=== PATIENT | female | born 1960 | race Caucasian/White ===

== ENCOUNTER 2020-11-23 15:13 | Emergency (ER) | payer OTHER ==
[~2020-11-23] VITALS: Ht 157.5 cm; Wt 81.6 kg
--- NOTE | 2020-11-23 15:14 | NUR ---
pt ADAIR to bed 03 via henry.
[2020-11-23 15:18] VITALS: BP 133/86
[2020-11-23] MEDS ORDERED: NACL 0.9% 1,000 ML IV ONE (15:30)
--- NOTE | 2020-11-23 15:32 | NUR ---
CHEST XRAY PERFORMED AT 1532
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
[2020-11-23 15:56] LABS: BASOPHILS % (AUTO) 0.2 % (0.0-2.0); HEMATOCRIT 41.7 % (36-48); HEMOGLOBIN 13.9 g/dL (12.0-16.0); LYMPHOCYTES # (AUTO) 0.7 K/uL (2.5-16.5); LYMPHOCYTES % (AUTO) 4.7 % (20.5-51.1); MEAN CORPUSCULAR HEMOGLOBIN 32 pg (27-31); MEAN CORPUSCULAR HGB CONC 33 g/dL (33-37); MEAN CORPUSCULAR VOLUME 95.6 fL (80-94); MONOCYTES # (AUTO) 1.1 K/uL (0.8-1.0); MONOCYTES % (AUTO) 7.3 % (1.7-9.3); NEUTROPHILS # (AUTO) 13.7 K/uL (1.8-7.7); NEUTROPHILS % (AUTO) 87.8 % (42.2-75.2); PLATELET COUNT (AUTO) 275 K/uL (140-450); RED BLOOD CELL COUNT(AUTO) 4.36 MIL/uL (4.20-5.40); RED CELL DISTRIBUTION WIDTH 13.8 % (11.6-13.7); WHITE BLOOD COUNT (AUTO) 15.7 K/uL (4.8-10.8)
[2020-11-23 16:10] LABS: ALBUMIN 3.9 g/dL (3.4-5.0); ANION GAP 27.8 (8-16); CARBON DIOXIDE 13.1 mmol/L (21-32); CREATININE 1.7 mg/dL (0.6-1.3); POTASSIUM 3.9 mmol/L (3.5-5.1); TOTAL BILIRUBIN 0.6 mg/dL (0.0-1.0)
--- NOTE | 2020-11-23 16:18 | NUR ---
Pt ambulated to restroom, unable to provide UA at this time.
--- NOTE | 2020-11-23 16:22 | NUR ---
Pt pulled out IV, gauze applied with pressure for 2minutes. Per MD no IV access at this time, PO water at this time.
--- NOTE | 2020-11-23 17:01 | NUR ---
Pt resting visible equal rise and fall of chest, VSS, will continue to monitor.
--- NOTE | 2020-11-23 18:38 | NUR ---
Provided patient with jm stanley and cup of water
[2020-11-23 19:44] LABS: ANION GAP 27.5 (8-16); CREATININE 1.3 mg/dL (0.6-1.3); POTASSIUM 4.5 mmol/L (3.5-5.1)
--- NOTE | 2020-11-23 20:00 | NUR ---
Report taken from LENO Anthony for continuation of care.
--- NOTE | 2020-11-23 20:04 | NUR ---
Gave report to LENO Kahn. Transfer of care at this time.
[2020-11-23] MEDS ORDERED: ONDANSETRON 4 MG ODT PO ONE (20:15)
[2020-11-23] MEDS ORDERED: ALUMINUM HYD/MAG/SIMETHICONE 30 ML UDC PO ONE (20:15)
[2020-11-23] MEDS ORDERED: methocarbamoL 500 MG TAB PO ONE (20:15)
--- NOTE | 2020-11-23 20:15 | NUR ---
Patient sitting in bed locked in lowest position, x1 side rail up. Patient [id number]. Breathing even and unlabored. Patient reports she feel ok, has back pain 6/10. Provided Patient with water. NAD noted will continue to monitor.
--- NOTE | 2020-11-23 20:20 | NUR ---
Patient ambulated to bathroom with steady gait, unable to provide urine at this time.
--- NOTE | 2020-11-23 20:55 | NUR ---
Patient present tachycardic at 110. ERMD made aware, ok for discharge.
[2020-11-23 20:57] VITALS: BP 133/94
--- NOTE | 2020-11-23 20:57 | NUR ---
Patient discharged with v/s stable. Written and verbal after care instructions given and explained. Patient verbalized understanding. Ambulatory with steady gait. All questions addressed prior to discharge. Advised to follow up with PMD.
== END 2020-11-23 20:57 | disposition home or self-care (01) ==
LOC: MED 15:13
DX: F10.129 Alcohol abuse with intoxication, unspecified (principal); R07.9 Chest pain, unspecified; I10 Essential (primary) hypertension; F17.200 Nicotine dependence, unspecified, uncomplicated; Z79.899 Other long term (current) drug therapy; Z90.49 Acquired absence of other specified parts of digestive tract; Z88.8 Allergy status to other drugs, medicaments and biological substances
CPT/HCPCS: 36415; 71045; 80048; 80053; 83690; 84484; 85025; 93005; 99285; G0482; J7030; Q0162